=== PATIENT | male | born 1965 | race Caucasian/White ===

== ENCOUNTER 2024-07-25 07:42 | Outpatient (REF) | payer BC, SELFPAY ==
--- OUTSIDE RECORDS SUMMARY | 2024-07-25 07:50 | XMS_ITS | Clinical Summary ---
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 Name Role Phone Gerson Mcdaniel MD Primary Care Provider [phone] Medications Medication Sig Dispensed Refills Start Date End Date Status diclofenac (VOLTAREN) 75 MG EC tablet 0 06/06/2019 Active Social History Tobacco Use Types Packs/Day Years Used Date Smoking Tobacco: Never Assessed Sex and Gender Information Value Date Recorded Sex Assigned at Not on file Gender Identity Not on file Sexual Orientation Not on file Last Filed Vital Signs Vital Sign Reading Time Taken Comments Blood Pressure - - Pulse - - Temperature - - Respiratory Rate - - Oxygen Saturation - - Inhaled Oxygen Concentration - - Weight 108.9 kg (240 lb) 07/06/2019 9:10 AM EST Height 182.9 cm (6') 07/06/2019 9:10 AM EST Body Mass Index 32.55 07/06/2019 9:10 AM EST Plan of Treatment Health Maintenance Due Date Last Done Comments Hepatitis C Screening 1965 COVID-19 Vaccine (#1) 1963 Depression Screening 1975 BMI Counseling 1981 Preventative Health Evaluation 1981 DTap / Tdap / Td (1 - Tdap) 1982 Colon Cancer Screening (Colonoscopy) 01/14/2008 Shingrix-Zoster Vaccine (1 of 2) 2013 Influenza Vaccine (#1) 2024 RSV Adult > 60+ Yrs or Pregn ant (1 - 1-dose 75+ series) 2038 Hepatitis B Vaccines Aged Out No long er eligible based on patient's age to complete this topic Pneumococcal Vaccine Aged Out No long er eligible based on patient's age to complete this topic RSV Ped < 20 months Aged Out No longe r eligible based on patient's age to complete this topic Care Teams Marine Geologist Relationship Specialty Start Date End Date Gerson Mcdaniel MD [address] [address] PCP - General Internal Medicine 07/06/19
--- OUTSIDE RECORDS SUMMARY | 2024-07-25 07:50 | XMS_ITS | Data Portability ---
Author Organization [facility] Address [address] [place] [address] Assessment No assessment recorded. Plan of Treatment Reminders Order Date Submit Date Provider Last Modified By Organization Details Last Modified Time Details Appointments FOLLO W UP 15 2024 09:45A M AUGUSTIN FALCON Not available Not available Not available Lab vitam in D, 25-hy droxy , total , serum 2024 025 [facility], [address] [place] [address], [id number], 07/24/2024 09:53:32 CMP, serum or plasm a 2024 025 [facility], [address] [place] [address], [id number], 07/24/2024 09:53:32 CBC w/ auto diff 2024 025 [facility], [address] [place] [address], [address], 07/24/2024 09:53:32 lipid panel , blood 2024 025 [facility], [address] [place] [address], [id number], 07/24/2024 09:53:31 hemog lobin A1c, QN, blood 2024 025 [facility], [address] [place] [address], [id number], 07/24/2024 09:53:32 PSA, serum or plasm a 2022 023 [facility] (Centralized Electronic Ordering - All Locations), Patient Can Go To The Location Of Their Choice, 12/03/2022 00:33:25 TSH + free T4, serum 2022 023 [facility] (Centralized Electronic Ordering - All Locations), Patient Can Go To The Location Of Their Choice, 12/03/2022 00:33:25 vitam in D, 25-hy droxy , total , serum 2022 023 [facility] (Centralized Electronic Ordering - All Locations), Patient Can Go To The Location Of Their Choice, 12/03/2022 00:33:25 CMP, serum or plasm a 2022 023 [email or web address] [facility] (Centralized Electronic Ordering - All Locations), Patient Can Go To The Location Of Their Choice, 11/20/2022 15:52:59 CBC w/ auto diff 2022 023 [facility] (Centralized Electronic Ordering - All Locations), Patient Can Go To The Location Of Their Choice, 12/03/2022 00:33:25 hemog lobin A1c, QN, blood 2022 023 rtryba [facility] (Centralized Electronic Ordering - All Locations), Patient Can Go To The Location Of Their Choice, 11/20/2022 15:52:59 [address]erral [address] nixon refer [facility] 2024 025 [facility], [address] [place] [address], [place], [address], 07/25/2024 04:01:25 [address]ole [address]lisa refer [facility] 2024 025 [facility], [address] [place] [address] , [address]rd In, [facility], [address], 07/25/2024 04:01:25 nicole goodwin islisa refer ral 2022 023 [email or web address] [facility], [address] [place], [address], 10/23/2022 16:50:32 Procedures None recor ded. Surgeries None recor ded. Imaging None recor ded. Medication Orders lisin opril 20 mg table t 2024 025 [id number], [address] [place], [place], [phone], 07/24/2024 15:04:07 clotr imazo le-be tamet hason e 1 %-0.0 5 % topic al cream 2022 023 [facility][id number], [address] [place], [place], [phone], 07/24/2024 09:40:51 lisin opril 10 mg table t 2022 023 [id number], [address] [place], [place], [phone], 10/23/2022 15:42:00 Patient TargetsNo targets recorded. Patient InstructionsNo instructions recorded. 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 Problems Name Problem SNOMED Code Status Onset Date Resolution Date Notes Provider Name and Address Organization Details Recorded Time Essential hypertensi on 10894331 Active 2022 AUGUSTIN FALCON [address] [place], [address], [facility] 3 15:33:41 Onycholysi s due to fungal infection of nail 901769555 Active 2022 AUGUSTIN FALCON [address] [place], [address], [facility] 3 15:51:04 Vitamin D deficiency 46882387 Active 2022 AUGUSTIN FALCON [address] [place], [address], [facility] 3 15:49:17 Problem Notes None recorded. Procedures Surgical History Date Name Laterality Status Provider Name and Address Organization Details Recorded Time total replacement of left hip joint completed AUGUSTIN FALCON [address] [place] [address], [phone], [facility] 10/23/2022 15:46:32 Shoulder joint surgery completed AUGUSTIN FALCON [address] [place] [address], [phone], [facility] 10/23/2022 15:46:59 Imaging Results None recorded. Procedure Notes None recorded. Medical Equipment None Reported. Allergies No known drug allergies Medications Name Sig Start Date Stop Date Status Note LastModified by Organization Details LastModified Time lisinopril 20 mg tablet Take 1 tablet every day by oral route for 30 days. 2024 active Not Available Not Available Not Avai lable clotrimazol e-betametha sone 1 %-0.05 % topical cream APPLY TO THE AFFECTED AND SURROUNDI NG AREAS OF SKIN BY TOPICAL ROUTE 2 TIMES PER DAY IN THE MORNING AND EVENING FOR 2 WEEKS 07/24 completed Not Available Not Available Not Available lisinopril 10 mg tablet take one tab per day 2024 active Not Available Not Available Not Avai lable Vitals Date Recorded Body height Body mass index (BMI) Body weight Heart rate Oxygen saturation Oxygen saturation in Arterial blood by Pulse oximetry Systolic blood pressure Diastolic blood pressure Provider Name and Address Organization Details Last Updated DateTime 3 182.88 cm 32.5 kg/m2 469579. 17 g 78 /min 95 % 95 % 160 mm[Hg] 100 mm[Hg] Trini Alan [facility] 3 15:25:59 Date Recorded Body height Body mass index (BMI) Body weight Heart rate Oxygen saturation Oxygen saturation in Arterial blood by Pulse oximetry Systolic blood pressure Diastolic blood pressure Provider Name and Address Organization Details Last Updated DateTime 3 182.88 cm 32.5 kg/m2 289833. 17 g 82 /min 98 % 98 % 130 mm[Hg] 82 mm[Hg] Trini Alan [facility] 3 15:42:11 Date Recorded Body height Body mass index (BMI) Body weight Heart rate Oxygen saturation Oxygen saturation in Arterial blood by Pulse oximetry Systolic blood pressure Diastolic blood pressure Provider Name and Address Organization Details Last Updated DateTime 5 182.88 cm 30.4 kg/m2 256509. 77 g 72 /min 96 % 96 % 148 mm[Hg] 86 mm[Hg] Tracie Govea [facility] 5 09:20:17 Social History Question Answer Notes LastModified by Organizat ion Details LastModified Time Tobacco Smoking Status [facility] 10/27/2022 08:14:10 What Is Your Level Of Alcohol Consumption? Heavy Information not available 10/27/2022 What Is Your Level Of Caffeine Consumption? Moderate Information not available 10/27/2022 What Was The Date Of Your Most Recent Tobacco Screening? 07/24/2024 [email or web address] Information not available 07/24/2024 Do You Use Any Illicit Or Recreational Drugs? No Information not available 10/27/2022 Do You Or Have You Ever Used Any Other Forms Of Tobacco Or Nicotine? No [email or web address] Information not available 10/23/2022 Sex: Unknown Functional Status None recorded. Mental Status None recorded. Family History Relationship Description Onset Age of this Age Resolved Age Notes LastModified by Organization Details LastModified Time Father Cerebrovascu lar accident [email or web address] Not available 06/2022 15:44:04 Mother Arthritis jvanasse Not availabl e 10/27/2022 08:13:35 Notes:mother is very sensiti ve to medication Medical History No medical history recorded. Past Encounters Encounter ID Performer Location Encounter Start Date Encounter Closed Date Diagnosis/Indication Diagnosis SNOMED-CT Code Diagnosis ICD10 Code Diagnosis Note [id number] AUGUSTIN FALCON [facility] [address] [facility], [place] [address] 10/23/2022 15:14:45 10/23/2022 16:50:31 Essential hypertension 62552760 I10 agreed to trial lisinopril Screening colonoscopy 44 8338698 Z12.11 will set up with colonoscop y which he is due for Onycholysi s due to fungal infection of nail 018932502 L60.1 trial alt topical for treatment [id number] AUGUSTIN FALCON [facility] [address] [facility],[place] [address] 11/20/2022 15:36:10 11/20/2022 16:20:06 Essential hypertension 52499034 I10 agreed to trial lisinopril Screening for malignant neoplasm of prostate 230161251 Z12.5 agreed to PSA screening Vitamin D deficiency 347 34637 E55.9 hx of vitamin D defneeds recheck Family his tory of diabetes mellitus type 2 235431760 Z83.3 will fu with lab work Family his tory of Thyroid disorder 010495458 Z83.49 will fu with TSH screening [id number] AUGUSTIN FALCON [facility] [address] [facility] [address] 07/24/2024 09:13:25 07/24/2024 11:52:23 Depression screening 982710363 Z13.31 SCREENING NEGATIVE Active or passive immunization 912792302 Z23 shingles, flu, pna Vitamin D deficiency 347 50119 E55.9 hx of vitamin D defneeds recheck Essential hypertension 01720709 I10 increase 20 mg lisinopril Screening for malignant neoplasm of colon 925540278 Z12.11 will set up with new GI referral since [facility] won't schedule him (tried 3 times) Diabetes m ellitus screening 093318703 Z13.1 will set up with lab work Screening for malignant neoplasm of prostate 819413189 Z12.5 agreed to PSA screening Ophthalmic examination and evaluation 31800422 Z01.00 will set up with eye doc referral Health Concerns Section Related Observation LastModified by Organization Detai ls LastModified Time None Recorded Concern Status LastModified by Organization Details LastModified Time None Recorded Advance Directives Directive None Recorded Payers Encounter Date Sequence Insurance Name Policy Number Policy Jack Covered Member ID Jack Member ID Guarantor Name 10/23/2022 1 [place] [id number] Clarence Cohena [id number] Clarence Alvarado 11/20/2022 1 [place] [id number] Clarence Funez Alvarado [id number] Clarence Alvarado 07/24/2024 1 [place] [id number] Clarence Cohena [id number] Clarence Alvarado Notes Date Note Type Note Provider Name a nd Address Organization Details Recorded Time 3 text/html NPV the patient reports that he has never had BP issues prior to having two surgeriesthe patient reports that he was started on medication for pain that has side effects of hypertensionhas been reading high for the past few weeksthe patient is getting all the readings at home the pt has a h/x of a left total hip replacement which is doing really welldone by Dr. Monahan really mayrafoshankar with him for any complications had right shoulder surgery which he recovered needs routine colonoscopy (had his another one in his 40's) agreed to f/u in three weeks for another recheck AUGUSTIN FALCON [address] [place], [address], [facility] 10/23/2022 15:55:45 3 text/html 4-week f/u HTN: today in the office the patient BP is 130/82 L arm the patient is doing well on the BP medication with no side effects and no adjustment of their medications needed today at the appointment well-controlled on medication denies chest pain, sob, ankle swelling, orthopnea, palpitations the patient has been AUGUSTIN FALCON [address] [place], [address], [facility] 11/20/2022 15:57:23 5 text/html medication check HTN: the patient BP is elevated, the low dose lisinopril, was stable last yearthe patient reports that he just noticed recently his readings this past week have been averaging between 140s-150s/80-90sincr ease to 20 mg lisinopril, f/u in 2 to 3 weeks ago pt agrees, will set up with lab work as well vitamin D deficiency: needs recheck the patient has been stressed the past year due to the fact he has fam that have cancer that he is taking care ofmentally doing okay, no severe anxiety or depression, is getting more adjusted to everything since it has settled vitamin D: need recheck of his levels needs new GI referral needs new eye referral for changing vision AUGUSTIN FALCON [address] [place] [address], [place], [address], [facility] 07/24/2024 09:57:54
--- OUTSIDE RECORDS SUMMARY | 2024-07-25 07:50 | XMS_ITS | Continuity of Care Document ---
Author Organization [facility], [facility] Address [address] [facility] [place] [address] [place] [address] Assessment No assessment recorded. Plan of Treatment Reminders Order Date Submit Date Provider Last Modified By Organization Details Last Modified Time Details Appointments FOLLO W UP 15 2024 09:45A M AUGUSTIN FALCON Not available Not available Not available Lab vitam in D, 25-hy droxy , total , serum 2024 025 [facility], [address] [place] [address], [address], 07/24/2024 09:53:32 CMP, serum or plasm a 2024 025 [facility], [address] [place] [address], [address], 07/24/2024 09:53:32 CBC w/ auto diff 2024 025 [facility], [address] [place] [address], [address], 07/24/2024 09:53:32 lipid panel , blood 2024 025 [facility], [address] [place] [address], [address], 07/24/2024 09:53:31 hemog lobin A1c, QN, blood 2024 025 [facility], [address] [place] [address], [address], 07/24/2024 09:53:32 Referral ophalexsandra harris ogist refer ral 2024 025 [facility], [address] [place] [address], [address], 07/25/2024 04:01:25 gastr jacqueline norwoodru ist refer [facility] 2024 025 [facility], [address] [place] [address] Dr, [facility], [place], [address], 07/25/2024 04:01:25 Procedures None recor ded. Surgeries None recor ded. Imaging None recor ded. Medication Orders lisin opril 20 mg table t 2024 025 [id number], [address] [place] [address], [id number], 07/24/2024 15:04:07 Patient TargetsNo targets recorded. Patient InstructionsNo instructions recorded. 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 Ophthalmic examination and evaluation needs new eye exam, having worsening vision (with age) Referring Physician: Rhona Zepeda, Internal Medicine, Encounter Date: 07/24/2024 Problems Name Problem SNOMED Code Status Onset Date Resolution Date Notes Provider Name and Address Organization Details Recorded Time Essential hypertensi on 67951473 Active 2022 AUGUSTIN FALCON [address] [place], [address], [facility] 3 15:33:41 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 [...] 2024 active Not Available Not Available Not Alise quick Vitals Date Recorded Body height Body mass index (BMI) Body weight Heart rate Oxygen saturation Oxygen saturation in Arterial blood by Pulse oximetry Systolic blood pressure Diastolic blood pressure Provider Name and Address Organization Details Last Updated DateTime 5 182.88 cm 30.4 kg/m2 806383. 77 g 72 /min 96 % 96 % 148 mm[Hg] 86 mm[Hg] Tracie Govea [facility] 5 09:20:17 Social History Question Answer Notes LastModified by Organizat ion Details LastModified Time Tobacco Smoking Status Never [facility]oker [facility] 10/27/2022 08:14:10 What Is Your Level Of [...] Other Forms Of Tobacco Or Nicotine? No [email or web address] Information not available 10/23/2022 Sex: Unknown Functional [...] SNOMED-CT Code Diagnosis ICD10 Code Diagnosis Note [id number] AUGUSTIN FALCON [facility] [address] [facility],[place] [address] 07/24/2024 09:13:25 07/24/2024 11:52:23 Depression screening 218019105 Z13.31 SCREENING NEGATIVE Active or passive immunization 715774426 Z23 shingles, flu, pna Vitamin D deficiency 347 65645 E55.9 hx of vitamin D defneeds recheck Essential hypertension 36404738 I10 increase 20 mg lisinopril Screening for malignant neoplasm of colon 553920134 Z12.11 will set up with new GI referral since [facility] won't schedule him (tried 3 times) Diabetes m ellitus screening 467993210 Z13.1 will set up with lab work Screening for malignant neoplasm of prostate 509959793 Z12.5 agreed to PSA screening Ophthalmic examination and evaluation 40972950 Z01.00 will set up with eye doc referral Health Concerns Section Related Observation LastModified by Organization Detai ls LastModified Time None Recorded Concern Status LastModified by Organization Details LastModified Time None Recorded Payers Encounter Date Sequence Insurance Name Policy Number Policy Jack Covered Member ID Jack Member ID Guarantor Name 07/24/2024 1 [employer] [employer] [place] [id number] Clarence Alvarado [id number] Clarence Alvarado Notes Date Note Type Note Provider Name a nd Address Organization Details Recorded Time 07/24/2024 text/html medication check HTN: the patient BP is elevated, the low dose lisinopril, was stable last yearthe patient reports that he just noticed recently his readings this past week have been averaging between 140s-150s/80-90s increase to 20 mg lisinopril, f/u in 2 [...] eye referral for changing vision AUGUSTIN FALCON [address] [place] [address], [place], [address], [facility] 07/24/2024 09:57:54
[2024-07-25 13:41] LABS: MANUAL DIFF FLAG NO
[2024-07-25 13:53] LABS: Basophils Percent Auto 1.2 % (0-2); Eosinophils Absolute Auto 0.1 X10*3/uL (0.0-0.4); Eosinophils Percent Auto 4.1 % (0-4); Hemoglobin 15.1 g/dl (14.0-18.0); Imm Gran Abs Auto 0.01 X10*3/uL (0.00-0.03); Imm Gran Pct Auto 0.3 % (0.0-0.4); Lymphocytes Absolute Auto 1.1 X10*3/uL (1.2-4.9); Lymphocytes Percent Auto 32.9 % (20-40); Mean Corpuscular HGB Conc 32.8 g/dl (31.0-36.0); Mean Corpuscular Hemoglobin 30.8 pg (27.0-33.0); Mean Corpuscular Volume 93.9 fL (80.0-98.0); Mean Platelet Volume 10.4 fL (9.4-12.4); Monocytes Absolute Auto 0.4 X10*3/uL (0.1-1.2); Monocytes Percent Auto 11.5 % (2-11); Neutrophils Absolute Auto 1.7 x10*3/uL (2.0-8.3); Platelet Count 243 X10*3/uL (160-400); Red Cell Distribution Width 12.4 % (11.0-16.0); White Blood Count 3.4 X10*3/uL (4.8-10.8)
[2024-07-25 14:45] LABS: Alanine Aminotransferase 38 U/L (0-40); Albumin Level 3.7 g/dL (3.5-5.0); Alkaline Phosphatase 90 U/L (39-117); Anion Gap 10 (12-20); Aspartate Amino Transferase 39 U/L (5-37); Bilirubin Total 0.5 mg/dL (0.0-1.0); Blood Urea Nitrogen 12 mg/dL (9-16); Calcium 8.6 mg/dL (8.4-10.2); Carbon Dioxide 29 mmol/L (22-29); Chloride 107 mmol/L (96-108); Cholesterol 132 mg/dL (<200); Estimated Glomerular Filt Rate > 60; Glucose Random 89 mg/dL (60-115); HDL Cholesterol 40 mg/dL (>40); LDL Cholesterol Calculated 81 mg/dL (<100); Potassium 4.8 mmol/L (3.3-5.1); Sodium 141 mmol/L (135-145); Total Protein 6.9 g/dL (6.5-8.0); Triglycerides 58 mg/dL (<150)
[2024-07-25 15:25] LABS: Estimated Average Glucose 105 mg/dL; Hemoglobin A1C 133.2847 umol/L; Hemoglobin A1c % 5.3 % (<6.0); Total Hemoglobin (HGBA1C) 3865.6048 umol/L
[2024-07-29 11:44] LABS: VITAMIN D (1,25 OH) D3 30 pg/mL; Vit D (1,25-Dihydroxy) Total 30 pg/mL (18-72); Vitamin D (1,25 OH) D2 <8 pg/mL
== END 2024-07-25 07:43 | disposition home or self-care (01) ==
LOC: HO.MANLDS 07:42
PROVIDERS: Visit Provider Physician Assistant
DX: E55.9 Vitamin D deficiency, unspecified (principal); I10 Essential (primary) hypertension; Z13.1 Encounter for screening for diabetes mellitus
CPT/HCPCS: 36415; 80053; 80061; 82652; 83036; 85025

== ENCOUNTER 2024-12-22 09:15 | Outpatient (AMB) | payer BC, SELFPAY ==
--- NOTE | 2024-12-22 09:23 | A.OFFVIS_ITS ---
Vital Signs 12/22/24 09:27 Height 6 ft Weight 228 lb BMI 30.9 BP 158/95 H Blood Pressure Location Lt brachial Position Sitting Pulse 73 Intake Visit Reasons: [place] Screening Intake Note: New patient in office today for colonoscopy screening. CC: Patient denies any GI symptoms or concerns today. Last colonoscopy at [facility] about 20 years ago per patient. Shoe Singer Required: No Accompanied by: Self / Same As Patient Allergies No Known Drug Allergies Allergy (Unknown, Verified 12/22/24 09:32) none HPI HPI [place] Screening: Details: 59-year-old male here for preprocedural meeting to discuss a screening colonoscopy. He is referred by [facility] in [place]. PMX Obesity-BMI 30 Hypertension * SURGICAL HISTORY Right shoulder surgery Left hip replacement Colonoscopy-age 38 Tonsillectomy * ALLERGIES: NKDA * [facility] LABS: Laboratory Tests 07/25/24 07:50 WBC 3.4 L Hgb 15.1 Hct 46.0 Plt Count 243 Estimated GFR > 60 Total Bilirubin 0.5 AST 39 H ALT 38 Alkaline Phosphatase 90 TODAY'S VISIT He had a scope at age 38 at [facility], and I tried and tried to get an appt at age 48 but I could not get them to see me - I was told I was not a priority. He had a polyp removed. He denies any bowel or upper GI problems. He denies any cardiac or respiratory problems. No anes or sed problems. No ID problems. He may have had a polyps 20 years ago, the record is not discoverable at [facility], but there is no known FHX CRC or polyps. [facility] Surgical History H/O colonoscopy History of hip replacement H/O shoulder surgery Family History Daughter Thyroid cancer Paternal Grandmother Breast cancer Social History Alcohol intake: current Alcohol intake frequency: holidays/special occasions only Patient Tobacco Use Status: Never used Tobacco Review of Systems Const Denies fatigue, Denies fever(s), Denies night sweats, Denies poor appetite and Denies weight loss ENT Reports Normal hearing present, Denies dental pain, Denies dysphagia, Denies hearing loss, Denies mouth pain, Denies odynophagia, Denies throat swelling, Denies tongue swelling and Reports other (Dentition adequate) Card Reports no additional complaints Resp Reports no additional complaints GI Details: Denies abdominal pain, Denies melena, Denies bloating, Denies hematochezia, Denies constipation, Denies GI cramping, Denies dysphagia, Denies excessive f latus, Denies early satiety, Denies heartburn, Denies diarrhea, Denies nausea, Denies odynophagia, Denies vomiting and Denies hematemesis Skin/Breast Denies pruritus, Denies lesions, Denies rash and Denies jaundice Neuro Reports Normal hearing present and Denies Abnormal speech present Endo Denies fatigue Aller/Immun Denies throat swelling and Denies tongue swelling Physical Exam Const General: cooperative, no acute distress, well developed and well groomed Nutritional Appearance: well nourished and overweight Orientation/consciousness: oriented to person, oriented to place and oriented to time Limitations: No language barrier HEENT Head: Yes normocephalic and Yes atraumatic Eyes General: appearance normal, both eyes and all related structures Pupils: Equal, round and reactive pupils present Neck Neck: Yes normal visual inspection and Yes no lymphadenopathy Thyroid: Thyroid normal Resp Effort & Inspection: normal respiratory effort and able to speak in complete sentences Auscultation: clear to auscultation bilaterally Cardio Rate: regular rate Rhythm: regular rhythm Heart sounds: Normal, physiologic split S2 sound present Peripheral pulses: radial pulses present and posterior tibial pulses present GI Inspection: No distended and No Abdominal panniculus present Palpation (GI): Soft to palpation, nontender, no guarding, not rigid and No hepatosplenomegaly present Percussion: Yes normal to percussion Auscultation: normal bowel sounds Rectal Exam - Male: Yes deferred Skin General skin exam: no rashes or lesions noted, turgor normal, skin not dry, no jaundice, No spider nevi and no striae Rashes: no rashes Nails: normal Neuro General: oriented to person, oriented to place and oriented to time Cranial nerves: Yes Equal, round and reactive pupils present and Yes Normal hearing present Speech: No Abnormal speech present Extrem General: Yes normal to inspection, No clubbing, No cyanosis and No edema Psych Appearance: grossly normal and well kempt Mental Status: mental status grossly normal Speech and movement: Normal speech and movement present Affect: normal affect Attitude: cooperative Thought process: Normal thought process present and not confabulating Thought content: Normal thought content present Insight: Good insight present (Psych) Judgement: Good judgement present (Psych) Assessment & Plan Assessment & Plan (1) Pre-op examination: Code(s): Z01.818 - Encounter for other preprocedural examination Category: Medical Plan He had a scope at age 38 at [facility], and I tried and tried to get an appt at age 48 but I could not get them to see me - I was told I was not a priority. He had a polyp removed. He denies any bowel or upper GI problems. He denies any cardiac or respiratory problems. No anes or sed problems. No ID problems. He may have had a polyps 20 years ago, the record is not discoverable at [facility], but there is no known FHX CRC or polyps. Orders: Orders Colonoscopy - GI Use Only Today Z01.818 - Encounter for other preprocedural examination Medications: New peg 3350-electrolytes 236-22.74-6.74 -5.86 gram (Golytely) until fecal effluent is clear; do not exceed a total volume of 2,000 mL 240 mL PO Q10M 4,000 mL 0RF 1 day Z12.11 - Encounter for screening for malignant neoplasm of colon bisacodyl (Dulcolax (bisacodyl)) 10 mg (2 x 5 mg) PO BEDTIME 4 tabs 0RF 2 days Coding Level of Care Code New Pt Level 3 (83415) Diagnoses Pre-op examination Z01.818
[2024-12-22 09:27] VITALS: BP 158/95; PULSE 73; BMI 30.9
--- OUTSIDE RECORDS SUMMARY | 2024-12-22 09:29 | XMS_ITS | Clinical Summary ---
Author Organization [facility] Address [address] [facility] [address] [place] [address] Phone Care Team Providers Care Tool Inspector Name Role Phone Manuel Elaine DO Unavailable HeidiManuel lyons Primary Care Provider [phone] Allergies No known active allergies Medications aspirin 81 MG EC tablet Take 81 mg by mouth daily. Active Active Problems Problem Noted Date Diagnosed Date Traumatic incomplete tear of right rotator cuff Social History Tobacco Use Types Packs/Day Years Used Date Smoking Tobacco: Never Smokeless Tobacco: Never Tobacco Cessation:Counseling Given: Not Answered Alcohol Use Standard Drinks/Week Comments Yes 2 (1 standard drink = 0.6 oz pur e alcohol) occaionally Education Answer Date Recorded Are you interested in more education? Not on shira e 09/18/2022 Are you concerned about learning? Not on file 09/18/2022 No 09/18/2022 No 09/18/2022 Digital Access Answer Date Recorded No 10/17/2022 No 10/17/2022 Reliable internet access at home? Not on file 10/17/2022 Device with a working camera? Not on file Sex and Gender Information Value Date Recorded Sex Assigned at Male 07/16/2020 6:21 AM EST Legal Sex Male 8:39 AM EDT Gender Identity Male 07/16/2020 6:21 AM EST Sexual Orientation Straight 07/16/2020 6: 21 AM EST Last Filed Vital Signs Vital Sign Reading Time Taken Comments Blood Pressure 160/100 12/31/2023 8:31 AM EDT Pulse 77 12/31/2023 8:31 AM EDT Temperature 36.6 C (97.9 F) 12/31/2023 8:31 AM EDT Respiratory Rate 16 12/31/2023 8:31 AM EDT Oxygen Saturation 98% 12/31/2023 8:31 AM EDT Inhaled Oxygen Concentration - - Weight 108.9 kg (240 lb) 12/31/2023 8:31 AM EDT Height 182.9 cm (6') 09/23/2020 3:49 PM EDT Body Mass Index 32.55 09/23/2020 3:49 PM EDT Plan of Treatment Health Maintenance Due Date Last Done Comments Adult Td,Tdap Booster 1963 LIPID PANEL 1963 DEPRESSION SCREENING 1975 HEPATITIS C SCREENING 1981 HIV ONE-TIME SCREENING (18-6 5 YEARS) 1981 COLOGUARD 01/14/2008 COLONOSCOPY 01/14/2008 COLORECTAL CANCER SCREENING 01/14/2008 FIT TEST 01/14/2008 FOBT 01/14/2008 SIGMOIDOSCOPY 01/14/2008 VIRTUAL COLONOSCOPY 01/14/2008 PNEUMOCOCCAL VACCINES (50+ years) (1 of 1 - PCV) 2013 ZOSTER VACCINES (1 of 2) 2013 COVID-19 VACCINE (2 - 2023-2 5 season) 2024 06/06/2021 SCREENING FOR DIABETES 12/01/2025 3, 06/24/2020 RSV VACCINE (1 - 1-dose 75+ series) 2038 SMOKING STATUS SCREENING (On ce After 26 Yrs) Completed 12/31/2023 HEPATITIS A VACCINES Aged Out No long er eligible based on patient's age to complete this topic HIB VACCINES Aged Out No longer eligi ble based on patient's age to complete this topic MENINGOCOCCAL VACCINES (ACWY) Aged Out No longer eligible based on patient's age to complete this topic MENINGOCOCCAL VACCINES (B) Aged Out N o longer eligible based on patient's age to complete this topic Medical Devices Implanted Type Area Shipping And Receiving Clerk Device Identifier Shelf Expiration Date Model / Serial / Lot Hambleton Suture 4.75x19.1mm Arthroscopy Swivelock Biocomposite Vented Closed Eyelet Tigertape Loop - [id number] Implanted:Qty: 1 on 02/19/2020 by Ousmane Urrutia MD at [facility] STANDARD Right: Shoulder ARTHREX [id number] 04/22/2023 AR-2324B CCTT / / [id number] Hambleton Suture 19.1x4.75mm Vented Closed Eyelet Fibertape Loop Swivelock Biocomposite - [id number] Implanted:Qty: 1 on 02/19/2020 by Ousmane Urrutia MD at [facility] STANDARD Right: Shoulder ARTHREX [id number] 11/21/2023 AR-2324B CCT / / [id number] Hambleton Suture 4.75x19.1mm Arthroscopy Swivelock Biocomposite Vented Closed Eyelet Tigertape Loop - [id number] Implanted:Qty: 1 on 02/19/2020 by Ousmane Urrutia MD at [facility] STANDARD Right: Shoulder ARTHREX [id number] 11/21/2023 AR-2324B CCTT / / [id number] Hambleton Suture 19.1x5.5mm Arthroscopy Swivelock Biocomposite Vented Closed Eyelet Bx/5ea - [id number] Implanted:Qty: 1 on 02/19/2020 by Ousmane Urrutia MD at [facility] Right: Shoulder ARTHREX [id number] 10/22/2023 AR-2323B CC / / [id number] Hambleton Suture 19.1x5.5mm Arthroscopy Swivelock Biocomposite Vented Closed Eyelet Bx/5ea - [id number] Implanted:Qty: 1 on 02/19/2020 by Ousmane Urrutia MD at [facility] Right: Shoulder ARTHREX [id number] 06/23/2023 AR-2323B CC / / [id number] Insurance [facility] OUT OF STATE PPO CROSS OUT OF STATE PPO CROSS OUT OF [facility] PPO BLUE CROSS OUT OF [facility] PPO BLUE CROSS OUT OF STATE PPO BLUE CROSS OUT OF STATE PPO BLUE CROSS OUT OF STATE [place] [address] [address] CROSS OUT OF STATE PPO BLUE CROSS OUT OF STATE PPO Care Teams Tool Inspector Relationship Specialty Start Date End Date Manuel Elaine DO [address] [place] [address] [email or web address] PCP - General Internal Medicine 12/31/23 Manuel Elaine DO [address] [place] [address] Insurance Assigned Provider 08/28/23 Additional Source Comments The information contained in this document represents components of the legal health record. It is not the complete legal health record.[facility]
--- OUTSIDE RECORDS SUMMARY | 2024-12-22 09:29 | XMS_ITS | Clinical Summary ---
Author Organization [facility] Address [address] [place] [address] Care Team Providers Care Packing Line Operator Name Role Phone Gerson Mcdaniel MD Primary Care Provider [phone] Medications Medication Sig Dispensed Refills Start Date [...] (1 of 2) 2013 Influenza Vaccine (#1) 2025 RSV Adult > 60+ Yrs or Pregn [...] age to complete this topic Care Teams Packing Line Operator Relationship Specialty Start Date End Date Gerson Mcdaniel MD [address] [address] PCP - General Internal Medicine 07/06/19
== END 2024-12-22 09:52 | disposition home or self-care (01) ==
LOC: HO.HGI 09:16
PROVIDERS: PCP Physician Assistant; Visit Provider Nurse Practitioner
DX: Z01.818 Encounter for other preprocedural examination (principal); Z12.11 Encounter for screening for malignant neoplasm of colon
CPT/HCPCS: S0285

== ENCOUNTER 2025-03-30 11:30 | Day surgery (SDC) | payer BC, SELFPAY ==
--- OUTSIDE RECORDS SUMMARY | 2025-03-23 12:47 | XMS_ITS | Clinical Summary ---
Author Organization [facility] Address [address] [place] [address] Care Team Providers Care Music Librarian Name Role Phone Gerson Mcdaniel MD Primary Care Provider [phone] Medications Medication Sig Dispensed Refills Start Date [...] age to complete this topic Care Teams Music Librarian Relationship Specialty Start Date End Date Gerson Mcdaniel MD [address] [address] PCP - General Internal Medicine 07/06/19
--- OUTSIDE RECORDS SUMMARY | 2025-03-23 12:47 | XMS_ITS | Clinical Summary ---
Author Organization [facility] Address [address] [facility] [address] [place] [address] Phone Care Team Providers Care Furniture Repair Technician Name Role Phone Manuel Elaine DO Unavailable HeidiManuel lyons Primary Care Provider [phone] Allergies No known active allergies Medications aspirin [...] 2013 ZOSTER VACCINES (1 of 2) 2013 INFLUENZA VACCINE (#1) 2024 COVID-19 VACCINE (2 - 2024-2 6 season) 2025 06/06/2021 SCREENING FOR DIABETES 12/01/2025 3, 06/24/2020 [...] this topic Medical Devices Implanted Type Area Oil Mixer Device Identifier Shelf Expiration Date Model / Serial / Lot Gaffney Suture 4.75x19.1mm Arthroscopy Swivelock Biocomposite Vented Closed Eyelet Tigertape Loop - [id number] Implanted:Qty: 1 on 02/19/2020 by Ousmane Urrutia MD at [facility] STANDARD Right: Shoulder ARTHREX [id number] 04/22/2023 AR-2324B CCTT / / [id number] Gaffney Suture 19.1x4.75mm Vented Closed Eyelet Fibertape Loop Swivelock Biocomposite - [id number] Implanted:Qty: 1 on 02/19/2020 by Ousmane Urrutia MD at [facility] STANDARD Right: Shoulder ARTHREX [id number] 11/21/2023 AR-2324B CCT / / [id number] Gaffney Suture 4.75x19.1mm Arthroscopy Swivelock Biocomposite Vented Closed Eyelet Tigertape Loop - [id number] Implanted:Qty: 1 on 02/19/2020 by Ousmane Urrutia MD at [facility] STANDARD Right: Shoulder ARTHREX [id number] 11/21/2023 AR-2324B CCTT / / [id number] Gaffney Suture 19.1x5.5mm Arthroscopy Swivelock Biocomposite Vented Closed Eyelet Bx/5ea - [id number] Implanted:Qty: 1 on 02/19/2020 by Ousmane Urrutia MD at [facility] Right: Shoulder ARTHREX [id number] 10/22/2023 AR-2323B CC / / [id number] Gaffney Suture 19.1x5.5mm Arthroscopy Swivelock Biocomposite Vented Closed Eyelet Bx/5ea - [id number] Implanted:Qty: 1 on 02/19/2020 by Ousmane Urrutia MD at [facility] Right: Shoulder ARTHREX [id number] 06/23/2023 AR-2323B CC / / [id number] Insurance [facility] OUT OF STATE PPO BLUE CROSS OUT OF STATE PPO BLUE CROSS OUT OF STATE PPO BLUE CROSS OUT OF STATE PPO BLUE CROSS OUT OF STATE PPO BLUE CROSS OUT OF STATE PPO BLUE CROSS OUT OF STATE PPO BLUE CROSS OUT OF STATE PPO BLUE CROSS OUT OF STATE PPO Care Teams Furniture Repair Technician Relationship Specialty Start Date End Date Manuel Elaine DO [address] [place] [address] [email or web address] PCP - General Internal Medicine 12/31/23 Manuel Elaine DO [address] [place] [address] [email or web address] Insurance Assigned Provider 08/28/23 Additional Source Comments The information contained in this document represents components of the legal health record. It is not the complete legal health record.[facility]
--- OUTSIDE RECORDS SUMMARY | 2025-03-23 12:47 | XMS_ITS | Encounter Summary ---
Author Organization [facility] Address [address] [address] Phone Care Team Providers Care Club Manager Name Role Phone Aníbal Mcdaniel MD Primary Care Provider [phone] Pcp, Unknown Primary Care Provider Unavailabl e Manuel Elaine DO Unavailable Manuel lEaine DO Primary Care Provider [phone] Encounter Details Date Type Department Care Team (Late st Contact Info) Description 08/03/2019 Procedure Pass [facility] [address] [place] [id number] Social History Tobacco Use Types Packs/Day Years Used Date Smoking Tobacco: Never Smokeless Tobacco: Never Alcohol Use Standard Drinks/Week Comments Yes 0 (1 standard drink = 0.6 oz pur e alcohol) occaionally Sex and Gender Information Value Date Recorded Sex Assigned at Male 07/16/2020 6:21 AM EST Legal Sex Male 8:39 AM EDT Gender Identity Male 07/16/2020 6:21 AM EST Sexual Orientation Straight 07/16/2020 6: 21 AM EST documented as of this encounter Plan of Treatment Not on file documented as of this encounter Visit Diagnoses Not on filedocumented in this encounter Care Teams Club Manager Relationship Specialty Start Date End Date Aníbal Mcdaniel MD [address] [place] [address] PCP - General Pulmonary Disease 02/07/19 09/09/22 Pcp, Unknown PCP - General 09/10/22 12/30/23 Manuel Elaine DO [address] [place] [address] PCP - General Internal Medicine 12/31/23 Manuel Elaine DO [address] [place] [address] Insurance Assigned Provider 08/28/23 documented as of this encounter Additional Source Comments The information contained in this document represents components of the legal health record. It is not the complete legal health record.[facility]
--- OUTSIDE RECORDS SUMMARY | 2025-03-23 12:47 | XMS_ITS | Encounter Summary ---
Author Organization [facility] Address [address] [facility] [address] [place] [address] Phone Care Team Providers Care Swatcher Name Role Phone Aníbal Mcdaniel MD Primary Care Provider [phone] Pcp, Unknown Primary Care Provider Unavailabl e Manuel Elaine DO Unavailable Manuel Elaine DO Primary Care Provider [phone] Encounter Details Date Type Department Care Team (Late st Contact Info) Description 09/04/2019 Procedure Pass [facility] @ [address] [id number] Social History Tobacco Use Types Packs/Day Years [...] on filedocumented in this encounter Care Teams Swatcher Relationship Specialty Start Date End Date Aníbal Mcdaniel MD [address] [place] [address] PCP - General Pulmonary Disease 02/07/19 09/09/22 Pcp, Unknown PCP - General 09/10/22 12/30/23 Manuel Elaine DO [address] [place] [address] PCP - General Internal Medicine 12/31/23 Manuel Elaine DO [address] [place] [address] Insurance Assigned Provider 08/28/23 documented as of this encounter Additional Source Comments The information contained in this document represents components of the legal health record. It is not the complete legal health record.[facility]
--- OUTSIDE RECORDS SUMMARY | 2025-03-23 12:47 | XMS_ITS | Data Portability ---
Author Organization [facility] Telehealth Patient Home Address [address] [place] [address] Assessment Encounter Date Assessment Date Assessment LastModified by Organization Details LastModified Time 09/01/2024 09/01/2024 [id number] [place] [id number] (WO[employer]UEL PELLETIZER) MDM MODERATE MUST MEET 2 OUT OF 3 ELEMENTS: PROBLEMS, DATA OR RISK ELEMENT 1: PROBLEMS ADDRESSED 1 OR MORE CHRONIC ILLNESS WITH EXACERBATION OR 2 OR MORE STABLE CHRONIC ILLNESSES OR 1 UNDIAGNOSED NEW PROBLEM OR 1 ACUTE ILLNESS W/SYMPTOMS OR 1 ACUTE COMPLICATED INJURY ELEMENT 2: DATA MUST MEET 1 OF 3 CATEGORIES CATEGORY 1: REVIEW OF PRIOR EXTERNAL NOTES, REVIEW OF RESULTS, ORDERING OF EACH TEST, ASSESSMENT REQUIRING INDEPENDENT HISTORIAN OR CATEGORY 2: INDEPENDENT INTERPRETATION OF TESTS BY ANOTHER PHYSICIAN OR SPECIALIST OR CATEGORY 3: DISCUSSION OF MGT OR TEST INTERPRETATION W/EXTERNAL PHYSICIAN OR SPECIALIST ELEMENT 3: RISK RISK OF COMPLICATIONS AND/OR MORBIDITY OR MORTALITY OF PATIENT MANAGEMENT PROVIDER MUST THOROUGHLY DOCUMENT EACH ELEMENT THAT IS COVERED [email or web address] Not available 09/01/2024 09:58:58 Plan of Treatment Reminders Order Date Submit Date Provider Last Modified By Organization Details Last Modified Time Details Appointments None record ed. Lab gastro intest inal pathog ens panel, PCR, stool 2024 025 BRANDON [facility] (Centralized Electronic Ordering - All Locations), Patient Can Go To The Location Of Their Choice, [id number] 19:25:22 amylas e + lipase , serum 2024 025 rtryba [facility] (Centralized Electronic Ordering - All Locations), Patient Can Go To The Location Of Their Choice, [address] 12:16:08 ESR (eryth rocyte sedime ntatio n rate), blood 2024 025 rtryba [facility] (Centralized Electronic Ordering - All Locations), Patient Can Go To The Location Of Their Choice, 12:16:09 C reacti ve protei n, QN, serum or plasma 2024 025 rtryba [facility] (Centralized Electronic Ordering - All Locations), Patient Can Go To The Location Of Their Choice, 12:16:09 gamma- glutam yl transf erase (ggt), serum 2024 025 rtryba [facility] (Centralized Electronic Ordering - All Locations), Patient Can Go To The Location Of Their Choice, 12:16:09 iron + TIBC + ferrit in, serum 2024 025 BRANDON [facility] (Centralized Electronic Ordering - All Locations), Patient Can Go To The Location Of Their Choice, 09:29:37 CMP, serum or plasma 2024 025 BR[facility] (Centralized Electronic Ordering - All Locations), Patient Can Go To The Location Of Their Choice, 09:29:37 CBC w/ auto diff 2024 025 rtryba [facility] (Centralized Electronic Ordering - All Locations), Patient Can Go To The Location Of Their Choice, 12:16:11 C diff toxin A+B, qualit ative, stool 2024 025 rtryba [facility] (Centralized Electronic Ordering - All Locations), Patient Can Go To The Location Of Their Choice, 12:16:11 vitami n D, 25-hyd candice, total, serum 2024 [facility], [address] [place] [address], [place], [address], 12:26:56 CMP, serum or plasma 2024 [facility], [address] [place] [address], [place], [address], 5 09:53:32 CBC w/ auto diff 2024 025 [facility], [address] [place] [address], [address], 5 09:53:32 lipid panel, blood 2024 025 [facility], [address] [place] [address], [address], 5 09:53:31 hemogl obin A1c, QN, blood 2024 025 [facility], [address] [place] [address], [address], 5 09:53:32 PSA, serum or plasma 2022 023 BRANDON [facility] (Centralized Electronic Ordering - All Locations), Patient Can Go To The Location Of Their Choice, 00:33:25 TSH + free T4, serum 2022 023 [facility] (Centralized Electronic Ordering - All Locations), Patient Can Go To The Location Of Their Choice, 00:33:25 vitami n D, 25-hyd candice, total, serum 2022 023 [facility] (Centralized Electronic Ordering - All Locations), Patient Can Go To The Location Of Their Choice, 00:33:25 CMP, serum or plasma 2022 023 rtryba [facility] (Centralized Electronic Ordering - All Locations), Patient Can Go To The Location Of Their Choice, 15:52:59 CBC w/ auto diff 2022 023 [facility] (Centralized Electronic Ordering - All Locations), Patient Can Go To The Location Of Their Choice, [address] 07/13/202 3 00:33:25 hemogl obin A1c, QN, blood 2022 023 rtryba [facility] (Centralized Electronic Ordering - All Locations), Patient Can Go To The Location Of Their Choice, [address] 3 15:52:59 Referral ophtha lmolog ist referr al 2024 025 [facility], [address] [place] [address], [address], 5 08:39:50 gastro entero logist referr al 2024 025 [facility], [address] [place] [address] Dr, [facility], [place] [place], [address], 08:39:50 Procedures None record ed. Surgeries None record ed. Imaging None record ed. Medication Orders predni sone 10 mg tablet 2024 025 [id number], [address], [place], [id number], 5 12:03:58 doxycy corley hyclat e 100 mg tablet 2024 025 [facility] #[id number], [address], [place], [id number], 5 12:03:59 lisino pril 20 mg tablet 2024 025 [facility], [facility], AUGUSTIN Massey, [address], 5 12:10:31 lisino pril 5 mg tablet 2024 025 [facility] #[id number], [address], [place], [id number], 5 12:09:54 lisino pril 20 mg tablet 2024 025 [facility] #[id number], [address], [place], [id number], 5 15:04:07 Patient TargetsNo targets recorded. Patient InstructionsNo instructions recorded. 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 Problems Name Problem SNOMED Code Status Onset Date Resolution Date Notes Provider Name and Address Organization Details Recorded Time Essential hypertensi on 29084630 Active 2022 AUGUSTIN FALCON [address] [place] [address], [address], [facility] 3 15:33:41 Onycholysi s due to fungal infection of nail 379308210 Active 2022 AUGUSTIN FALCON [address] [place] [address], [address], [facility] 3 15:51:04 Vitamin D deficiency 21743207 Active 2022 AUGUSTIN FALCON [address] [place] [address], [address], [facility] 3 15:49:17 Contact dermatitis caused by urushiol from [facility] juan antonio 145439266 Active 2024 AUGUSTIN FALCON [address] [place] [address], [address], [facility] 5 11:59:23 Acute diarrhea 586104442 Active 2024 AUGUSTIN FALCON [address] [place] [address], [address], [facility] 5 12:00:39 Problem Notes None recorded. 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 Procedure Notes None recorded. Medical Equipment None Reported. Allergies No known drug allergies Medications Name Sig Start Date Stop Date Status Note LastModified by Organization Details LastModified Time prednisone 10 mg tablet 40 mg x 2 days30 mg x 2 days20 mg x 2 days10 mg x 2 days 2024 active Not Available Not Available Not Avai lable lisinopril 20 mg tablet Take 1 tablet every day by oral route as directed for 90 days. 2024 active Not Available Not Available Not Avai lable clotrimazol e-betametha sone 1 %-0.05 % topical cream APPLY TO THE AFFECTED AND SURROUNDI NG AREAS OF SKIN BY TOPICAL ROUTE 2 TIMES PER DAY IN THE MORNING AND EVENING FOR 2 WEEKS 07/24 completed Not Available Not Available Not Available lisinopril 10 mg tablet take one tab per day 08/11 completed Not Available Not Available Not Available lisinopril 5 mg tablet Take 1 tablet every day by oral route as directed for 30 days. 11/27 completed Not Available Not Available Not Available doxycycline hyclate 100 mg tablet Take 1 tablet twice a day by oral route for 7 days. 2024 active Not Available Not Available Not Avai lable Vitals Date Recorded Body height Body mass index (BMI) Body weight Heart rate Oxygen saturation Oxygen saturation in Arterial blood by Pulse oximetry Systolic And Diastolic Provider Name and Address Organization Details Last Updated DateTime 182.88 cm 30.4 kg/m2 204501. 77 g 72 /min 96 % 96 % 148/86 mm[Hg] Tracie Govea [facility] 03/03/202 5 09:20:17 Date Recorded Body height Body mass index (BMI) Body weight Heart rate Oxygen saturation Oxygen saturation in Arterial blood by Pulse oximetry Systolic And Diastolic Provider Name and Address Organization Details Last Updated DateTime 5 182.88 cm 31.1 kg/m2 397305. 65 g 68 /min 96 % 96 % 134/86 mm[Hg] Jani Kandy [facility] 5 09:58:34 Date Recorded Body height Body mass index (BMI) Body weight Heart rate Oxygen saturation Oxygen saturation in Arterial blood by Pulse oximetry Systolic And Diastolic Provider Name and Address Organization Details Last Updated DateTime 5 182.88 cm 31.1 kg/m2 175345. 65 g 84 /min 97 % 97 % 128/80 mm[Hg] Trini Phillips [facility] 5 09:32:26 Date Recorded Body height Body mass index (BMI) Body weight Heart rate Oxygen saturation Oxygen saturation in Arterial blood by Pulse oximetry Systolic And Diastolic Provider Name and Address Organization Details Last Updated DateTime 3 182.88 cm 32.5 kg/m2 584673. 17 g 82 /min 98 % 98 % 130/82 mm[Hg] Trini Phillips [facility] 3 15:42:11 Date Recorded Body height Body mass index (BMI) Body weight Oxygen saturation Oxygen saturation in Arterial blood by Pulse oximetry Heart rate Systolic And Diastolic Provider Name and Address Organization Details Last Updated DateTime 5 182.88 cm 30.1 kg/m2 381228. 87 g 98 % 98 % 85 /min 128/84 mm[Hg] Elly Faria [facility] 5 11:50:30 Social History Question Answer Notes LastModified by [employer] Details LastModified Time Tobacco Smoking Status Never Smoker Ciara chaney [facility] 10/27/2022 08:14:10 What Is Your Level Of Caffeine Consumption? Moderate Information not available 10/27/2022 What Was The Date Of Your Most Recent Tobacco Screening? 11/27/2024 [email or web address] Information not available 11/27/2024 Sex: Unknown Functional Status Question Answer Note LastModified by [employer] Details LastModified Time Do you use any illicit or recreational drugs? No Information not available 10/27/2022 Do you or have you ever used any other forms of tobacco or nicotine? No [email or web address] Information not available 10/23/2022 What is your level of alcohol consumption? Heavy Information not available 10/27/2022 Mental Status None recorded. Family History Relationship [...] Diagnosis SNOMED-CT Code Diagnosis ICD10 Code Diagnosis IMO Codes Diagnosis Note [id number] Manuel Elaine [facility] [address] [facility], [place] [address] 10/23/2022 15:14:45 10/23/2022 16:50:31 Essential hypertension 41791794 I10 agreed to trial lisinopril Screening colonoscopy 44 4212096 Z12.11 will set up with colonoscop y which he is due for Onycholysi s due to fungal infection of nail 090983166 L60.1 trial alt topical for treatment [id number] Manuel Elaine [facility] [address] [facility], [place] [address] 11/20/2022 15:36:10 11/20/2022 16:20:06 Essential hypertension 26734962 I10 agreed to trial lisinopril Screening for malignant neoplasm of prostate 435566274 Z12.5 agreed to PSA screening Vitamin D deficiency 347 71196 E55.9 hx of vitamin D defneeds recheck Family his tory of diabetes mellitus type 2 580224090 Z83.3 will fu with lab work Family his tory of Thyroid disorder 401509383 Z83.49 will fu with TSH screening [id number] Manuel Elaine [facility] [address] [facility], [place] [address] 07/24/2024 09:13:25 07/24/2024 11:52:23 Depression screening 593202243 Z13.31 SCREENING NEGATIVE Active or passive immunization 023212480 Z23 shingles, flu, pna Vitamin D deficiency 347 13603 E55.9 hx of vitamin D defneeds recheck Essential hypertension 28152947 I10 increase 20 mg lisinopril Screening for malignant neoplasm of colon 301621313 Z12.11 will set up with new GI referral since [facility] won't schedule him (tried 3 times) Diabetes m ellitus screening 021212181 Z13.1 will set up with lab work Screening for malignant neoplasm of prostate 800287709 Z12.5 agreed to PSA screening Ophthalmic examination and evaluation 91667390 Z01.00 will set up with eye doc referral [id number] Manuel Elaine [facility] [address] [facility] [address] [place] [address] 08/11/2024 09:36:56 08/11/2024 13:48:04 Essential hypertension 75932529 I10 increase 25 mg lisinopril for better control since he is still getting the high readings [id number] Manuel Elaine [facility] [address] [facility] [address] [place] [address] 09/01/2024 09:22:12 09/01/2024 14:59:27 Essential hypertension 95758897 I10 much better with 25mg lisinopril Vitamin D deficiency 347 94718 E55.9 stable Depression screening 171 992802 Z13.31 neg [id number] Manuel Elaine [facility] [address] [facility] [address] [place] [address] 11/27/2024 11:23:52 11/27/2024 15:39:31 Contact dermatitis caused by urushiol from [facility] poison juan antonio 374891077 L23.7 924057 will start on pred and doxy Acute diarrhea 386556670 R19.7 11370 will set up with lab work and stool sample Essential hypertension 01383290 I10 increase 25 mg lisinopril for better control since he is still getting the high readings Health Concerns Section Related Observation LastModified by Organization Detai ls LastModified Time None Recorded Concern Status LastModified by Organization Details LastModified Time None Recorded Advance Directives Directive None Recorded Payers Insurance Date Sequence Insurance Name Policy Number Policy Jack Covered Member ID Jack Member ID Guarantor Name 11/27/2024 1 [facility] (PPO) [id number] Clarence Alvarado [id number] Clarence Alvarado Notes Date Note Type Note Provider Name and Address Organization Details Recorded Time 3 text/htm l 4-week f/u HTN: today in the office the patient BP is 130/82 L arm the patient is doing well on the BP medication with no side effects and no adjustment of their medications needed today at the appointment well-controlled on medication denies chest pain, sob, ankle swelling, orthopnea, palpitations the patient has been AUGUSTIN FALCON [address] [place], [address], [facility] 11/20/2022 15:57:23 5 text/htm l ROS as noted in the [facility] medication check HTN: the patient BP is elevated, the low dose lisinopril, was stable last yearthe patient reports that he just noticed recently his readings this past week have been averaging between 140s-150s/80-90sincrease to 20 mg lisinopril, f/u in 2 [...] eye referral for changing vision AUGUSTIN FALCON [address] [place], [address], [facility] 07/24/2024 09:57:54 5 text/htm l HTN f/u 3 week BP: today in the office the patient BP is 134/86, prior to appt 126/80 which is much improved the patient is doing well on the BP medication with no side effects and no adjustment of their medications needed today at the appointment well-controlled on medication denies chest pain, sob, ankle swelling, orthopnea, palpitations patient is up to the 20 mg lisinoprilBP levels at home looked much better, he has been having good results, averaging around 120/80s which is excellent progress no side effects did have elevated numbers in the 140s/80s start on the 25 mg now for a slight bump for maximum control fu in 3 weeks AUGUSTIN FALCON [address] [place], [address], [facility] 08/11/2024 10:13:11 5 text/htm l Care Management - HypertensionReported by PatientHPIFor self care, patient reportsnot under emotional stress. For severity, patient reportssymptoms are improvinganddoes not interfere with daily activities. For associated symptoms, patient reportsno dizziness,no lightheadedness,no chest pain,no shortness of breath,no palpitations,no edema,no calf muscle cramps,no blurred vision,no confusion,no headaches, andno fatigue. Care management - Vitamin D Deficiency/OsteoporosisR eported by PatientInterim HistoryFor height, patient reportsheight stable. For fracture history, patient reportsno history of recent fracture. For associated symptoms, patient reportsno bone painandno history of kidney stones.ROS as noted in the HPI here for rechk and is doing better overall Manuel Elaine, [address] [place], [address], [facility] 09/01/2024 11:18:12 5 text/htm l ROS as noted in the HPI c/o poison juan antonio and diarrhea the patient started with diarrhea about 4 days ago, he has been in and off of the hospital visiting his motherhas been using imodium, the patient reports he has been having loose stools with yellow mucus, no blood in the stool the pt has had ongoing stress due to his mother and also had [employer] right before he started with symptomsalso he has been around his mother in law who had E. Coli related diarrhea recommended full testing denies any other changes or dietary changes the patient also has poison juan antonio, has only been using topicals but has not improvedrecommended starting on prednisone and doxy given risk for infection AUGUSTIN FALCON [address] [place], [address], [facility] 11/27/2024 12:12:02
--- OUTSIDE RECORDS SUMMARY | 2025-03-23 12:47 | XMS_ITS | Encounter Summary ---
Author Organization [facility] Address [address] [facility] [address] [place] [address] Phone Care Team Providers Care Steward/Stewardess Second Class Name Role Phone Aníbal Mcdaniel MD Primary Care Provider [phone] Pcp, Unknown Primary Care Provider Unavailabl e Manuel Elaine DO Unavailable Manuel Elaine DO Primary Care Provider [phone] Encounter Details Date Type Department Care Team (Late st Contact Info) Description 02/19/2020 Procedure Pass [facility] @ [address] [address] Social History Tobacco Use Types Packs/Day Years Used Date Smoking Tobacco: Never Smokeless Tobacco: Never Alcohol Use Standard Drinks/Week Comments Yes 2 [...] on filedocumented in this encounter Care Teams Steward/Stewardess Second Class Relationship Specialty Start Date End Date Aníbal Mcdaniel MD [address] [place] [id number] PCP - General Pulmonary Disease 02/07/19 09/09/22 Pcp, Unknown PCP - General 09/10/22 12/30/23 Manuel Elaine DO [address] [place] [address] PCP - General Internal Medicine 12/31/23 Manuel Elaine DO [address] [place] [address] Insurance Assigned Provider 08/28/23 documented as of this encounter Additional Source Comments The information contained in this document represents components of the legal health record. It is not the complete legal health record.[facility]
[2025-03-28 08:34] VITALS: BMI 30.9
--- NOTE | 2025-03-28 10:23 | P.CONAN_ITS ---
Documented by User: Suzanne Franco NP 03/28/25 10:23 HPI - Anesthesia Eval Consult details Narrative: 60 yr old male for colonoscopy PMFSH Active Problems Active Problems: All Active Problems (Updated 12/22/24 @ 09:40 by JULIA Haskins) Pre-op examination (Acute) Hypertension (Acute) Obesity (BMI 30.0-34.9) (Acute) Past Medical History Medical History HTN (hypertension) Family History Family History Daughter Thyroid cancer Paternal Grandmother Breast cancer Surgical History Surgical History H/O colonoscopy History of hip replacement H/O shoulder surgery Social History Social History Alcohol intake: current Alcohol intake frequency: does not drink Patient Tobacco Use Status: Never used Tobacco Have you been hit, kicked, punched, or otherwise hurt by someone within the past year? If so, by whom?: No Are you DNR?: No Advance Directives: No Advance Directives Information Provided: Yes Meds Allergies Allergy/AdvReac Type Severity Reaction Status Date / Time No Known Drug Allergies Allergy Unknown none Verified 12/22/24 09:32 Home Medications ?Medication ?Instructions ?Recorded ?Confirmed ?Last Taken ?Type lisinopril 20 mg tablet 20 mg PO DAILY 12/22/2412/1503/29/25 History Exam Height,Weight and Vital Signs: Height 6 ft Weight 103.419 kg Documented by User: Dedra Hook MD 03/30/25 13:36 [facility] Past Medical History Medical History HTN (hypertension) Family History Family History Daughter Thyroid cancer Paternal Grandmother Breast cancer Family history of problems with anesthesia: No Surgical History Surgical History H/O colonoscopy History of hip replacement H/O shoulder surgery History of Problems with Anesthesia: No Social History Social History Alcohol intake: current Alcohol intake frequency: does not drink Patient Tobacco Use Status: Never used Tobacco Have you been hit, kicked, punched, or otherwise hurt by someone within the past year? If so, by whom?: No Are you DNR?: No Advance Directives: No Advance Directives Information Provided: Yes Meds Allergies Allergy/AdvReac Type Severity Reaction Status Date / Time No Known Drug Allergies Allergy Unknown none Verified 12/22/24 09:32 Home Medications ?Medication ?Instructions ?Recorded ?Confirmed ?Last Taken ?Type lisinopril 20 mg tablet 20 mg PO DAILY 12/22/2412/1503/29/25 History Exam Airway Mallampati Class: II TM Dist: >3cm Neck ROM: Full Heart: rrr Lungs: cta Assessment and Plan Assessment Anesthesia Assessment: Anesthesia Plan Discussed and Chart Reviewed Final Anesthetic Review Family History of Problems with Anesthesia: No History of Problems with Anesthesia: No NPO: Yes ASA Class: II Final Preanesthetic Review: No Changes in Pt Med Stat, Meds/Allgs Chart Review ed, Consent Obtained/Reviewed and Anes Risks/Benef Reviewed Patient Risk: Low Procedure Risk: Low Anesthetic Plan Anesthetic Plan: MAC: Disposition: Standard PACU
[2025-03-30 12:06] VITALS: BP 138/95; PULSE 97; RESP 20; TEMP 36.4; O2SAT 96; BMI 30.6
[2025-03-30] MEDS: Lactated Ringers 1,000 ML 100 ML IVCONT (12:24)
--- NOTE | 2025-03-30 13:29 | MHC.SHP ---
Pre-Procedural Eval Section A - 24 Hr Update-Section A only Date of Service: 03/30/25 Section B - Complete if H&P > 30 days Chief Complaint: screening Details of Present Illness: H/O colonoscopy History of hip replacement H/O shoulder surgery Family History Daughter Thyroid cancer Paternal Grandmother Breast cancer Present Medications: see Short Stay Collaborative assessment Allergies: Allergies Allergy/AdvReac Type Severity Reaction Status Date / Time No Known Drug Allergies Allergy Unknown none Verified 12/22/24 09:32 Review of Systems Review of Systems Comment: Ten point ROS negative Exam Exam Comment: Gen appear: No acute distress HEENT: no icterus Chest: No overt resp distress Abd: soft, nontender, nondistended Psych: Stable affect, answering questions appropriately Neuro: A/Ox3 noted to move all extremities spontaneously Ext: no peripheral edema Plan Diagnosis/Plan: Unchanged I have reviewed the history and physical and performed a pertinent physical examination on my patient. No changes have occurred unless specified. Time Spent With Patient Time: Total time managing care of this patient today ____ minutes.
--- NOTE | 2025-03-30 15:03 | P.OPN-COLO_ITS ---
Colonoscopy Operative Note Operative Note Date of Service: 03/30/25 Narrative: Procedure: Colonoscopy Indication: Screening Endoscopist: Yuliet Givens MD Anesthesia Provider: Lena Dunne CRNA Anesthesia type: MAC Instrument: Olympus [id number]-H190L Consent: Indication, risks vs benefits, and alternatives were discussed with the patient who gave written informed consent to proceed. EKG, pulse, pulse oximetry and blood pressure were monitored throughout the procedure. Please see anesthesia flowsheet. Procedure: The patient was brought to the procedure room and placed in the left lateral decubitus position. IV medications were administered by the anesthesia provider in attendance. A digital rectal exam was performed which was abnormal due to finding of hemorrhoids. A distal attachment cap was affixed to the tip of the colonoscope which was then inserted through the anus and advanced through the colon to the cecum at 70 cm,and terminal ileum. Appendiceal orifice and ileocecal valve were identified. Mucosa was carefully examined under high definition white light as the instrument was slowly withdrawn in a retrograde panoramic fashion. Retroflexion was performed in rectum. The procedure was not difficult. There were no immediate obvious complications. The quality of the prep was BBPS: 2+3+3 = adequate Withdrawal time 9 minutes. Limitations: No limitations. Findings: Mucosa: Normal to cecum and terminal ileum. Protruding lesions: * Medium internal hemorrhoids without stigmata of recent bleeding. Excavated lesions: * Moderate diverticulosis of left sided colon. Impression: 1. Normal colon mucosa 2. Diverticulosis 3. External and internal hemorrhoids Recommendations: - Repeat colonoscopy for asymptomatic colorectal ca screening in 10 years.
[2025-03-30 15:06] VITALS: BP 110/65; PULSE 80; RESP 12; TEMP 36.6; O2SAT 95
[2025-03-30 15:20] VITALS: BP 131/84; PULSE 77; RESP 17; TEMP 36.6; O2SAT 95
== END 2025-03-30 15:55 | disposition home or self-care (01) ==
PROVIDERS: PCP Internal Medicine; Visit Provider Internal Medicine
PROC: 0DJD8ZZ Inspection of Lower Intestinal Tract, Via Natural or Artificial Opening Endoscopic (ICD-10-PCS; CPT 45378; principal; 2025-03-30 13:30)
DX: Z12.11 Encounter for screening for malignant neoplasm of colon (principal); K64.8 Other hemorrhoids; K64.4 Residual hemorrhoidal skin tags; Z86.0109 Personal history of other colon polyps; K57.30 Diverticulosis of large intestine without perforation or abscess without bleeding
CPT/HCPCS: 45378; J2704

== ENCOUNTER → 2025-03-30 11:30 | Outpatient (BNV) | payer BC, SELFPAY | PROVIDERS: PCP Internal Medicine; Visit Provider Internal Medicine | DX: Z12.11 Encounter for screening for malignant neoplasm of colon (principal); K57.90 Diverticulosis of intestine, part unspecified, without perforation or abscess without bleeding; K64.8 Other hemorrhoids | CPT/HCPCS: 45378 ==